=== PATIENT | female | born 1990 | race Caucasian/White ===

== ENCOUNTER 2018-09-26 10:45 | Emergency (ER) | payer SELFPAY ==
[2018-09-26 11:49] LABS: Urine Blood 1+ (NEG); Urine Glucose NEGATIVE (NEG); Urine Protein NEGATIVE (NEG); Urine Specific Gravity 1.025 (1.005-1.030)
--- NOTE | 2018-09-26 12:22 | ER ---
Nurse's Notes [facility] Name: Peyton Potts Age: 28 yrs Sex: Female : 1990 Arrival Date: 09/26/2018 Time: 10:48 Bed 17 Private MD: Diagnosis: Flu-like illness Presentation: 09/26 10:53 Presenting complaint: Patient states: fever Tmax 104, coughing with blood streaked sv sputum, body aches since Wednesday. Transition of care: patient was not received from another setting of care. Onset of symptoms was September 23, 2018. Risk Assessment: Do you want to hurt yourself or someone else? Patient reports no desire to harm self or others. Initial Sepsis Screen: Does the patient meet any 2 criteria? No. Patient's initial sepsis screen is negative. Does the patient have a suspected source of infection? No. Patient's initial sepsis screen is negative. Care prior to arrival: Medication(s) given: Mucinex and Theraflu. 10:53 Method Of Arrival: Ambulatory sv 10:53 Acuity: RICHIE 4 sv Triage Assessment: 11:00 General: Appears in no apparent distress. uncomfortable, Behavior is calm, cooperative, sv appropriate for age. General: Reports fever for 2-3 days, feeling ill for 2-3 days, fatigue for 2-3 days. Pain: Complains of pain in throat Pain currently is 7 out of 10 on a pain scale. EENT: Reports pain in throat. Neuro: Level of Consciousness is awake, alert, obeys commands, Oriented to person, place, time, situation, Moves all extremities. Full function. Respiratory: Respiratory effort is even, unlabored, Respiratory pattern is regular, symmetrical. 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 - Social history:: Smoking status: Patient/guardian denies using tobacco, Patient uses alcohol, occasionally. - Ebola Screening: : No symptoms or risks identified at this time. Screenin:53 Abuse screen: Denies threats or abuse. Nutritional screening: No deficits noted. tw2 Tuberculosis screening: No symptoms or risk factors identified. Fall Risk None identified. Assessment: 10:55 General: Appears in no apparent distress. Behavior is calm, cooperative, appropriate tw2 for age. Neuro: Level of Consciousness is awake, alert, obeys commands, Oriented to person, place, time, situation. Cardiovascular: Patient's skin is warm and dry. Respiratory: Reports cough that is Airway is patent Respiratory effort is even, unlabored, Respiratory pattern is regular, symmetrical. GI: No signs and/or symptoms were reported involving the gastrointestinal system. : No signs and/or symptoms were reported regarding the genitourinary system. EENT: Reports nasal congestion nasal discharge. Derm: No signs and/or symptoms reported regarding the dermatologic system. Musculoskeletal: Range of motion: intact in all extremities. 11:53 Reassessment: Patient appears in no apparent distress at this time. No changes from tw2 previously documented assessment. Patient and/or family updated on plan of care and expected duration. Pain level reassessed. Patient is alert, oriented x 3, equal unlabored respirations, skin warm/dry/pink. 12:35 Reassessment: Patient appears in no apparent distress at this time. No changes from tw2 previously documented assessment. Patient and/or family updated on plan of care and expected duration. Pain level reassessed. Patient is alert, oriented x 3, equal unlabored respirations, skin warm/dry/pink. Vital Signs: 11:01 BP 143 / 85; Pulse 85; Resp 20; Temp 98.8; Pulse Ox 99% ; Weight 77.11 kg; Height 5 ft. sv 0 in. (152.40 cm); Pain 7/10; 11:53 BP 116 / 68; Pulse 88; Resp 17; Pulse Ox 98% on R/A; tw2 11:01 Body Mass Index 33.20 (77.11 kg, 152.40 cm) sv ED Course: 10:48 Patient arrived in ED. sb2 10:51 Sae Caraballo MD is Attending Physician. ps1 10:59 Triage completed. sv 11:01 Arm band placed on Patient placed in an exam room, on a stretcher, on pulse oximetry. sv 11:03 Bed in low position. Call light in reach. tw2 11:48 Connie Gleason RN is Primary Nurse. tw2 12:35 No provider procedures requiring assistance completed. Patient did not have IV access tw2 during this emergency room visit. Administered Medications: No medications were administered Outcome: 12:21 Discharge ordered by . ps1 12:35 Discharged to home ambulatory. tw2 12:35 Condition: stable 12:35 Discharge instructions given to patient, Instructed on discharge instructions, follow up and referral plans. no drinking with medication, no driving heavy equipment, medication usage, Demonstrated understanding of instructions, follow-up care, medications, Prescriptions given X 3. 12:35 Patient left the ED. tw2 Signatures: Zohra Gomez RN RN sv Connie Gleason RN RN tw2 Sae Caraballo MD MD ps1 Billeau, Sheri sb2
--- NOTE | 2018-09-26 12:22 | EDPHYS ---
Physician Documentation [facility] Name: Peyton Potts Age: 28 yrs Sex: Female : 1990 Arrival Date: 09/26/2018 Time: 10:48 Bed 17 Private MD: ED Physician Sae aCraballo HPI: 09/26 10:57 This 28 yrs old Female presents to ER via Unassigned with complaints of Flu ps1 Symptoms. 10:57 onset was Wednesday associated with cough, fever (tmax 104) remits with Motrin, nausea flu ps1 like symptoms. Sent home from work. No urinary complaints. Tried OTC medications that she says didn't work. Has non-productive cough that is worse at night and in the morning. . 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 - Social history:: Smoking status: Patient/guardian denies using tobacco, Patient uses alcohol, occasionally. - Ebola Screening: : No symptoms or risks identified at this time. ROS: 10:57 Cardiovascular: Negative for chest pain, palpitations, and edema. ps1 10:57 MS/Extremity: Negative for injury and deformity, Skin: Negative for injury, rash, and discoloration, Neuro: Negative for headache, weakness, numbness, tingling, and seizure. 10:57 Constitutional: Positive for body aches, chills, fatigue, fever, poor PO intake. 10:57 Respiratory: Positive for cough. 10:57 Abdomen/GI: Positive for nausea, vomiting. Exam: 10:57 Constitutional: This is a well developed, well nourished patient who is awake, alert, ps1 and in no acute distress. Head/Face: Normocephalic, atraumatic. Eyes: Pupils equal round and reactive to light, extra-ocular motions intact. Lids and lashes normal. Conjunctiva and sclera are non-icteric and not injected. Chest/axilla: Normal chest wall appearance and motion. Nontender with no deformity. No lesions are appreciated. Cardiovascular: Regular rate and rhythm. No gallops, murmurs, or rubs. Normal PMI, no JVD. No pulse deficits. Respiratory: Lungs have equal breath sounds bilaterally, clear to auscultation and percussion. No rales, rhonchi or wheezes noted. No increased work of breathing, no retractions or nasal flaring. Abdomen/GI: Soft, non-tender, with normal bowel sounds. No distension or tympany. No guarding or rebound. No evidence of tenderness throughout. MS/ Extremity: Pulses equal, no cyanosis. Neurovascular intact. Full, normal range of motion. Neuro: Awake and alert, GCS 15, oriented to person, place, time, and situation. Cranial nerves II-XII grossly intact. Sensory grossly intact. Psych: Awake, alert, with orientation to person, place and time. Behavior, mood, and affect are within normal limits. Vital Signs: 11:01 BP 143 / 85; Pulse 85; Resp 20; Temp 98.8; Pulse Ox 99% ; Weight 77.11 kg; Height 5 ft. sv 0 in. (152.40 cm); Pain 7/10; 11:53 BP 116 / 68; Pulse 88; Resp 17; Pulse Ox 98% on R/A; tw2 11:01 Body Mass Index 33.20 (77.11 kg, 152.40 cm) sv MDM: 11:02 Patient medically screened. ps1 09/26 10:52 Order name: Flu; Complete Time: 12:20 ps1 09/26 11:26 Order name: Urine Dipstick--Ancillary (enter results); Complete Time: 12:20 ss 09/26 10:52 Order name: Urine Dipstick-Ancillary (obtain specimen); Complete Time: 11:21 ps1 09/26 11:26 Order name: Urine --Ancillary (enter results); Complete Time: 12:20 ss Administered Medications: No medications were administered Disposition: 09/26/18 12:21 Discharged to Home. Impression: Flu-like illness. - Condition is Stable. - Discharge Instructions: Upper Respiratory Infection, Adult, [id number]. - Prescriptions for promethazine- codeine 6.25-10 mg/5 mL Oral syrup - take 5 milliliter by ORAL route every 4-6 hours as needed, not to exceed 30 mL in 24 hours; 120 milliliter. Anaprox DS 550 mg Oral Tablet - take 1 tablet by ORAL route every 12 hours As needed; 20 tablet. Zofran 4 mg Oral Tablet - take 1 tablet by ORAL route every 12 hours As needed; 20 tablet. - Work release form, Medication Reconciliation Form, Thank You Letter, Antibiotic Education, Prescription Opioid Use form. - Follow up: Private Physician; When: As needed; Reason: Recheck today's complaints, Continuance of care, Re-evaluation by your physician. Follow up: Emergency Department; When: As needed; Reason: Trouble breathing, Worsening of condition. - Problem is new. - Symptoms are unchanged. Signatures: Dispatcher [employer] EDMS Zohra Gomez RN RN sv Connie Gleason RN RN tw2 Sae Caraballo MD MD ps1 Corrections: (The following items were deleted from the chart) 12:35 12:21 09/26/2018 12:21 Discharged to Home. Impression: Flu-like illness. Condition is tw2 Stable. Forms are Work release form, Medication Reconciliation Form, Thank You Letter, Antibiotic Education, Prescription Opioid Use. Follow up: Private Physician; When: As needed; Reason: Recheck today's complaints, Continuance of care, Re-evaluation by your physician. Follow up: Emergency Department; When: As needed; Reason: Trouble breathing, Worsening of condition. Problem is new. Symptoms are unchanged. ps1
[2018-09-26 12:50] VITALS: TEMP 98.8
[2018-09-26 12:52] VITALS: BP 116/68; O2SAT 98
== END 2018-09-26 12:35 | disposition home or self-care (01) ==
LOC: ER 10:45
DX: J11.1 Influenza due to unidentified influenza virus with other respiratory manifestations (principal)
CPT/HCPCS: 81003; 81025; 87804; 99283

== ENCOUNTER 2018-10-23 13:24 | Emergency (ER) | payer SELFPAY ==
[2018-10-23] MEDS ORDERED: IBUPROFEN 400 MG TAB ONE (14:21)
[2018-10-23] MEDS ORDERED: IBUPROFEN 200 MG TAB PO ONE (14:21)
[2018-10-23] MEDS ORDERED: HYDROCODONE/APAP 5/325 MG TAB ONE (14:21)
--- NOTE | 2018-10-23 14:41 | EDPHYS ---
Physician Documentation [facility] Name: Peyton Potts Age: 28 yrs Sex: Female : 1990 Arrival Date: 10/23/2018 Time: 13:25 Bed 26 Private MD: ED Physician Abdelrahman Poole HPI: 10/23 14:09 This 28 yrs old Female presents to ER via Ambulatory with complaints of Wrist snw Injury. 14:09 The patient or guardian reports injury, pain. The complaints affect the right wrist snw diffusely. Context: The problem was sustained outdoors, resulted from a fall, while skating. Onset: The symptoms/episode began/occurred suddenly, just prior to arrival. Compartment Syndrome negative for numbness. The patient has not experienced similar symptoms in the past. The patient has not recently seen a physician. denies LOC, no head injury, denies . 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 - Social history:: Smoking status: Patient/guardian denies using tobacco. - Ebola Screening: : Patient negative for fever greater than or equal to 101.5 degrees Fahrenheit, and additional compatible Ebola Virus Disease symptoms Patient denies exposure to infectious person Patient denies travel to an Ebola-affected area in the 21 days before illness onset No symptoms or risks identified at this time. ROS: 14:08 Constitutional: Negative for fever, chills, and weight loss, Eyes: Negative for injury, snw pain, redness, and discharge, ENT: Negative for injury, pain, and discharge, Neck: Negative for injury, pain, and swelling, Cardiovascular: Negative for chest pain, palpitations, and edema, Respiratory: Negative for shortness of breath, cough, wheezing, and pleuritic chest pain, Abdomen/GI: Negative for abdominal pain, nausea, vomiting, diarrhea, and constipation, Back: Negative for injury and pain, : Negative for injury, bleeding, discharge, and swelling, Skin: Negative for injury, rash, and discoloration, Neuro: Negative for headache, weakness, numbness, tingling, and seizure, Psych: Negative for depression, anxiety, suicide ideation, homicidal ideation, and hallucinations. 14:08 MS/extremity: Positive for injury or acute deformity, contusion, decreased range of motion, pain, swelling, heard pop in right wrist s/p fall. Exam: 14:06 Constitutional: This is a well developed, well nourished patient who is awake, alert, snw and in no acute distress. Head/Face: Normocephalic, atraumatic. Eyes: Pupils equal round and reactive to light, extra-ocular motions intact. Lids and lashes normal. Conjunctiva and sclera are non-icteric and not injected. Cornea within normal limits. Periorbital areas with no swelling, redness, or edema. ENT: Nares patent. No nasal discharge, no septal abnormalities noted. Tympanic membranes are normal and external auditory canals are clear. Oropharynx with no redness, swelling, or masses, exudates, or evidence of obstruction, uvula midline. Mucous membranes moist. Neck: Trachea midline, no thyromegaly or masses palpated, and no cervical lymphadenopathy. Supple, full range of motion without nuchal rigidity, or vertebral point tenderness. No Meningismus. Chest/axilla: Normal chest wall appearance and motion. Nontender with no deformity. No lesions are appreciated. Cardiovascular: Regular rate and rhythm with a normal S1 and S2. No gallops, murmurs, or rubs. Normal PMI, no JVD. No pulse deficits. Respiratory: Lungs have equal breath sounds bilaterally, clear to auscultation and percussion. No rales, rhonchi or wheezes noted. No increased work of breathing, no retractions or nasal flaring. Abdomen/GI: Soft, non-tender, with normal bowel sounds. No distension or tympany. No guarding or rebound. No evidence of tenderness throughout. Back: No spinal tenderness. No costovertebral tenderness. Full range of motion. Skin: Warm, dry with normal turgor. Normal color with no rashes, no lesions, and no evidence of cellulitis. Neuro: Awake and alert, GCS 15, oriented to person, place, time, and situation. Cranial nerves II-XII grossly intact. Motor strength 5/5 in all extremities. Sensory grossly intact. Cerebellar exam normal. Normal gait. Psych: Awake, alert, with orientation to person, place and time. Behavior, mood, and affect are within normal limits. 14:06 Psych: Awake, alert, with orientation to person, place and time. Behavior, mood, and affect are within normal limits. 14:06 Musculoskeletal/extremity: Extremities: grossly normal except: noted in the distal right radius: contusion, decreased ROM, swelling, tenderness, ROM: limited active range of motion due to pain, Circulation is intact in all extremities. Tingling of extremity. Vital Signs: 13:39 BP 116 / 78; Pulse 87; Resp 18; Temp 98.1; Pulse Ox 99% on R/A; Weight 79.38 kg; Height aj 5 ft. 0 in. (152.40 cm); 14:30 BP 113 / 74; Pulse 81; Resp 16; Temp 98(O); Pulse Ox 100% on R/A; Pain 5/10; ed1 14:53 BP 108 / 69; Pulse 68; Resp 16; Temp 98.2(O); Pulse Ox 99% on R/A; Pain 3/10; ed1 13:39 Body Mass Index 34.18 (79.38 kg, 152.40 cm) aj MDM: 13:46 Patient medically screened. leticia 13:46 Patient medically screened. leticia 14:35 Data reviewed: vital signs, nurses notes. Data interpreted: Pulse oximetry: on room air snw is 100 %. Interpretation: normal. Counseling: I had a detailed discussion with the patient and/or guardian regarding: the historical points, exam findings, and any diagnostic results supporting the discharge/admit diagnosis, radiology results, the need for outpatient follow up, for definitive care, to return to the emergency department if symptoms worsen or persist or if there are any questions or concerns that arise at home. Special discussion: Based on the history and exam findings, there is no indication for further emergent testing or inpatient evaluation. I discussed with the patient/guardian the need to see the orthopedic surgeon for further evaluation of the symptoms. I discussed with the patient/guardian the need to see the primary care provider for further evaluation of the symptoms. 10/23 13:45 Order name: Forearm Right XRAY snw 10/23 13:45 Order name: Misc. Order; Complete Time: 14:32 snw 10/23 14:38 Order name: Wrist Splint; Complete Time: 14:52 snw 10/23 14:38 Order name: Sling; Complete Time: 14:52 snw Administered Medications: 14:13 Drug: [place] 5 mg-325 mg 1 tabs Route: PO; ed1 14:51 Follow up: Response: No adverse reaction; Pain is decreased ed1 14:14 Drug: Motrin 600 mg Route: PO; ed1 14:51 Follow up: Response: No adverse reaction; Pain is decreased ed1 Disposition: 10/24 06:35 Co-signature as Attending Physician, Abdelrahman Poole MD I agree with the assessment and leticia plan of care. Disposition: 10/23/18 14:39 Discharged to Home. Impression: Fall on same level, unspecified, Other and unspecified sprain of wrist. - Condition is Stable. - Discharge Instructions: Cast or Splint Care, Adult, Fall Prevention in the Home, RICE for Routine Care of Injuries, How to Use a Sling. - Prescriptions for Diclofenac Sodium 75 mg Oral Tablet Sustained Release - take 1 tablet by ORAL route 2 times per day; 30 tablet. orphenadrine citrate 100 mg Oral Tablet Sustained Release - take 1 tablet by ORAL route 2 times per day As needed; 20 tablet. - Work release form, Medication Reconciliation Form, Thank You Letter, Antibiotic Education, Prescription Opioid Use form. - Follow up: Private Physician; When: 2 - 3 days; Reason: Recheck today's complaints, Continuance of care, Re-evaluation by your physician. Follow up: Emergency Department; When: As needed; Reason: Worsening of condition. Signatures: Dispatcher [employer] EDMS Rosalind Florez RN RN aj Anderson, Corey, MD MD cha Therrien, Shelly, LAND MOBILE RADIO TECHNICIAN-C LAND MOBILE RADIO TECHNICIAN-Miguel Aw Eleni Mejia, BUILDING CONSTRUCTION ENGINEER BUILDING CONSTRUCTION ENGINEER ed1 Corrections: (The following items were deleted from the chart) 10/23 14:55 14:39 10/23/2018 14:39 Discharged to Home. Impression: Fall on same level, unspecified; ed1 Other and unspecified sprain of wrist. Condition is Stable. Forms are Medication Reconciliation Form, Thank You Letter, Antibiotic Education, Prescription Opioid Use. Follow up: Private Physician; When: 2 - 3 days; Reason: Recheck today's complaints, Continuance of care, Re-evaluation by your physician. Follow up: Emergency Department; When: As needed; Reason: Worsening of condition. snw
--- NOTE | 2018-10-23 14:41 | ER ---
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 Transition of care: patient was not received from another setting of care. Onset of symptoms was October 23, 2018. Risk Assessment: Do you want to hurt yourself or someone else? Patient reports no desire to harm self or others. Initial Sepsis Screen: Does the patient meet any 2 criteria? No. Patient's initial sepsis screen is negative. Does the patient have a suspected source of infection? No. Patient's initial sepsis screen is negative. Care prior to arrival: None. 13:36 Method Of Arrival: Ambulatory 13:36 Acuity: RICHIE 4 aj Triage Assessment: 13:39 General: Appears in no apparent distress. comfortable, Behavior is calm, cooperative, aj appropriate for age. Pain: Complains of pain in right wrist. Neuro: Level of Consciousness is awake, alert, obeys commands, Oriented to person, place, time, situation, Appropriate for age. Respiratory: Airway is patent Respiratory effort is even, unlabored, Respiratory pattern is regular, symmetrical. Derm: Skin is intact, is healthy with good turgor, Skin is pink, warm \T\ dry. normal. Musculoskeletal: Circulation, motion, and sensation intact. Range of motion: intact in all extremities, Swelling present in right wrist. 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 - Social history:: Smoking status: Patient/guardian denies using tobacco. - Ebola Screening: : Patient negative for fever greater than or equal to 101.5 degrees Fahrenheit, and additional compatible Ebola Virus Disease symptoms Patient denies exposure to infectious person Patient denies travel to an Ebola-affected area in the 21 days before illness onset No symptoms or risks identified at this time. Screenin:49 Abuse screen: Denies threats or abuse. Denies injuries from another. Nutritional ed1 screening: No deficits noted. Tuberculosis screening: No symptoms or risk factors identified. Fall Risk None identified. Assessment: 14:30 Reassessment: Patient appears in no apparent distress at this time. No changes from ed1 previously documented assessment. Patient and/or family updated on plan of care and expected duration. Pain level reassessed. Patient is alert, oriented x 3, equal unlabored respirations, skin warm/dry/pink. x-rays completed in room. 14:53 Reassessment: Patient appears in no apparent distress at this time. Patient and/or ed1 family updated on plan of care and expected duration. Pain level reassessed. Patient is alert, oriented x 3, equal unlabored respirations, skin warm/dry/pink. Patient states feeling better. Patient states symptoms have improved. Vital Signs: 13:39 BP 116 / 78; Pulse 87; Resp 18; Temp 98.1; Pulse Ox 99% on R/A; Weight 79.38 kg; Height aj 5 ft. 0 in. (152.40 cm); 14:30 BP 113 / 74; Pulse 81; Resp 16; Temp 98(O); Pulse Ox 100% on R/A; Pain 5/10; ed1 14:53 BP 108 / 69; Pulse 68; Resp 16; Temp 98.2(O); Pulse Ox 99% on R/A; Pain 3/10; ed1 13:39 Body Mass Index 34.18 (79.38 kg, 152.40 cm) aj ED Course: 13:25 Patient arrived in ED. as 13:39 Triage completed. aj 13:39 Arm band placed on left wrist. Patient placed in an exam room. aj 13:44 Jayashree Post FNP-C is PSYCHIATRICP. snw 13:44 Abdelrahman Poole MD is Attending Physician. snw 13:49 Eleni Mejia LVN is Primary Nurse. ed1 13:49 Awaiting for x-ray. ed1 13:49 Patient has correct armband on for positive identification. Bed in low position. Call ed1 light in reach. 14:33 X-ray completed. Portable x-ray completed in exam room. Patient tolerated procedure la2 well. 14:34 Forearm Right XRAY In Process Unspecified. EDMS 14:53 No provider procedures requiring assistance completed. Patient did not have IV access ed1 during this emergency room visit. Velcro wrist splint applied to right wrist. Sling applied to right arm. Administered Medications: 14:13 Drug: [place] 5 mg-325 mg 1 tabs Route: PO; ed1 14:51 Follow up: Response: No adverse reaction; Pain is decreased ed1 14:14 Drug: Motrin 600 mg Route: PO; ed1 14:51 Follow up: Response: No adverse reaction; Pain is decreased ed1 Outcome: 14:39 Discharge ordered by MD. snw 14:53 Discharged to home ambulatory, with significant other. ed1 14:53 Condition: good 14:53 Discharge instructions given to patient, Instructed on discharge instructions, follow up and referral plans. medication usage, Demonstrated understanding of instructions, follow-up care, medications, Prescriptions given X 2. 14:55 Patient left the ED. ed1 Signatures: Dispatcher [employer] Rosalind Santillan, RN RN Jayashree Emanuel, GASTROENTEROLOGY MANAGER-C GASTROENTEROLOGY MANAGER-Deborah Baumann Erika, TWX OPERATOR TWX OPERATOR ed1 Nannette Gillespie la2 Corrections: (The following items were deleted from the chart) 14:31 14:30 Reassessment: Patient appears in no apparent distress at this time. No changes ed1 from previously documented assessment. Patient and/or family updated on plan of care and expected duration. Pain level reassessed. Patient is alert, oriented x 3, equal unlabored respirations, skin warm/dry/pink. ed1
[2018-10-23 15:13] VITALS: BP 108/69; TEMP 98.2; O2SAT 99
--- NOTE | 2018-10-23 15:21 | RAD REPORT ---
EXAM DESCRIPTION: RAD - Forearm Right - 10/23/2018 2:34 pm CLINICAL HISTORY: Fall, right arm pain COMPARISON: None. FINDINGS: No fracture is identified. There is no dislocation or periosteal reaction noted. No foreign body or other soft tissue abnormality. IMPRESSION: Negative right forearm examination.
== END 2018-10-23 14:55 | disposition home or self-care (01) ==
LOC: ER 13:24
DX: S63.591A Other specified sprain of right wrist, initial encounter (principal); W01.0XXA Fall on same level from slipping, tripping and stumbling without subsequent striking against object, initial encounter; Y93.51 Activity, roller skating (inline) and skateboarding
CPT/HCPCS: 99284

== ENCOUNTER 2019-03-15 15:25 | Emergency (ER) | payer SELFPAY ==
[2019-03-15] MEDS ORDERED: METOCLOPRAMIDE 10 MG/2mL INJ ONE (16:41)
[2019-03-15] MEDS ORDERED: DIPHENHYDRAMINE 50 MG/ML VIAL ONE (16:41)
[2019-03-15] MEDS ORDERED: DEXAMETHASONE 10 MG/ML VIAL ONE (16:41)
--- NOTE | 2019-03-15 16:47 | RAD REPORT ---
EXAM DESCRIPTION: CT - Head Brain Wo Cont - 03/15/2019 4:22 pm CLINICAL HISTORY: Numbness COMPARISON: 2008 TECHNIQUE: Computed axial tomography of the head was obtained. IV contrast was not requested. All CT scans are performed using dose optimization technique as appropriate and may include automated exposure control or mA/KV adjustment according to patient size. FINDINGS: An intracranial bleed is not seen . The ventricles are normal in caliber. No extra-axial fluid collection is noted. Fluid within the sinuses/ mastoids is not seen. IMPRESSION: No acute intracranial abnormality is seen. If patient's symptoms persist MRI of the bra in would be recommended.
--- NOTE | 2019-03-15 16:55 | EDPHYS ---
Physician Documentation [facility] Name: Peyton Potts Age: 28 yrs Sex: Female : 1990 Arrival Date: 03/15/2019 Time: 15:27 Bed 19 Private MD: None, None ED Physician Ameena Boswell HPI: 03/15 16:44 This 28 yrs old Female presents to ER via Ambulatory with complaints of jr8 Headache. 16:44 The patient complains of pain to the forehead, right eye, left eye, left occipital area jr8 and right occipital area. The patient describes the headache as a pressure. Onset: The symptoms/episode began/occurred gradually, 3 month(s) ago. Associated signs and symptoms: Pertinent positives: Photophobia. Severity of symptoms: At its worst the pain was moderate, in the emergency department the pain is unchanged. Headache History: Denies prior headaches. The symptoms are alleviated by over the counter pain medication, OTC NSAIDS, Tylenol, the symptoms are aggravated by lights, movement, noise, stress. The patient has not experienced similar symptoms in the past. The patient has not recently seen a physician. Stated that she has had persistent chronic migraines for the past three months that would only be somewhat relieved by OTC medication. Now to the point where OTC meds are no longer helping. Has on/off facial and finger numbness and tingling associated with the migraines . 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 - Social history:: Smoking status: Patient/guardian denies using tobacco. - Ebola Screening: : No symptoms or risks identified at this time. ROS: 16:44 Eyes: Negative for injury, pain, redness, and discharge, ENT: Negative for injury, jr8 pain, and discharge, Neck: Negative for injury, pain, and swelling, Cardiovascular: Negative for chest pain, palpitations, and edema, Respiratory: Negative for shortness of breath, cough, wheezing, and pleuritic chest pain, Abdomen/GI: Negative for abdominal pain, nausea, vomiting, diarrhea, and constipation, Back: Negative for injury and pain, MS/Extremity: Negative for injury and deformity, Skin: Negative for injury, rash, and discoloration. 16:44 Neuro: Positive for headache, numbness. Exam: 16:44 Eyes: Pupils equal round and reactive to light, extra-ocular motions intact. Lids and jr8 lashes normal. Conjunctiva and sclera are non-icteric and not injected. Cornea within normal limits. Periorbital areas with no swelling, redness, or edema. ENT: Nares patent. No nasal discharge, no septal abnormalities noted. Tympanic membranes are normal and external auditory canals are clear. Oropharynx with no redness, swelling, or masses, exudates, or evidence of obstruction, uvula midline. Mucous membranes moist. Neck: Trachea midline, no thyromegaly or masses palpated, and no cervical lymphadenopathy. Supple, full range of motion without nuchal rigidity, or vertebral point tenderness. No Meningismus. Cardiovascular: Regular rate and rhythm with a normal S1 and S2. No gallops, murmurs, or rubs. Normal PMI, no JVD. No pulse deficits. Respiratory: Lungs have equal breath sounds bilaterally, clear to auscultation and percussion. No rales, rhonchi or wheezes noted. No increased work of breathing, no retractions or nasal flaring. Abdomen/GI: Soft, non-tender, with normal bowel sounds. No distension or tympany. No guarding or rebound. No evidence of tenderness throughout. Back: No spinal tenderness. No costovertebral tenderness. Full range of motion. Skin: Warm, dry with normal turgor. Normal color with no rashes, no lesions, and no evidence of cellulitis. MS/ Extremity: Pulses equal, no cyanosis. Neurovascular intact. Full, normal range of motion. Neuro: Awake and alert, GCS 15, oriented to person, place, time, and situation. Cranial nerves II-XII grossly intact. Motor strength 5/5 in all extremities. Sensory grossly intact. Cerebellar exam normal. Normal gait. Vital Signs: 15:35 BP 137 / 76; Pulse 82; Resp 16 S; Temp 98.4(TE); Pulse Ox 99% on R/A; Weight 86.18 kg aa5 (R); Height 5 ft. 1 in. (154.94 cm) (R); Pain 7/10; 16:40 BP 104 / 69; Pulse 67; Resp 17; Pulse Ox 98% on R/A; tw2 17:14 BP 105 / 68; Pulse 72; Resp 17; Pulse Ox 97% on R/A; Pain 5/10; tw2 15:35 Body Mass Index 35.90 (86.18 kg, 154.94 cm) aa5 MDM: 16:03 Patient medically screened. jr8 16:53 Data reviewed: vital signs, nurses notes, radiologic studies, CT scan. Data jr8 interpreted: Pulse oximetry: on room air is 99 %. Interpretation: normal. Counseling: I had a detailed discussion with the patient and/or guardian regarding: the historical points, exam findings, and any diagnostic results supporting the discharge/admit diagnosis, radiology results, the need for outpatient follow up, a neurologist, to return to the emergency department if symptoms worsen or persist or if there are any questions or concerns that arise at home. Response to treatment: the patient's symptoms have markedly improved after treatment. 03/15 16:09 Order name: CT Head Brain wo Cont; Complete Time: 16:50 jr8 03/15 16:08 Order name: IV; Complete Time: 16:50 jr8 Administered Medications: 16:45 Drug: Reglan 10 mg Route: IVP; Site: left antecubital; tw2 17:20 Follow up: Response: No adverse reaction; Pain is decreased tw2 16:48 Drug: Benadryl 25 mg Route: IVP; Site: left antecubital; tw2 17:20 Follow up: Response: No adverse reaction tw2 16:51 Drug: Decadron - Dexamethasone 10 mg Route: IVP; Site: left antecubital; tw2 17:20 Follow up: Response: No adverse reaction tw2 Disposition: 18:40 Co-signature as Attending Physician, Ameena Boswell MD. hi2 Disposition: 03/15/19 16:54 Discharged to Home. Impression: Migraine without aura, intractable, with status migrainosus. - Condition is Stable. - Discharge Instructions: Migraine Headache, Recurrent Migraine Headache. - Prescriptions for Fioricet 50- 325-40 mg Oral tablet - take 2 tablet by ORAL route every 4 hours as needed not to exceed 6 tablets per 24hrs; 30 tablet. - Work release form, Medication Reconciliation Form, Thank You Letter, Antibiotic Education, Prescription Opioid Use form. - Follow up: North Soares MD; When: 5 - 6 days; Reason: Recheck today's complaints, Continuance of care, Re-evaluation by your physician. - Problem is new. - Symptoms have improved. Signatures: Dispatcher [employer] EDNE Hazel Mas, RN RN aa5 José Miguel Kwong PA PA jr8 Connie Gleason RN RN tw2 Ameena Boswell MD MD ma2 Corrections: (The following items were deleted from the chart) 17:21 16:54 03/15/2019 16:54 Discharged to Home. Impression: Migraine without aura, tw2 intractable, with status migrainosus. Condition is Stable. Forms are Medication Reconciliation Form, Thank You Letter, Antibiotic Education, Prescription Opioid Use. Follow up: North Soares; When: 5 - 6 days; Reason: Recheck today's complaints, Continuance of care, Re-evaluation by your physician. Problem is new. Symptoms have improved. jr8
--- NOTE | 2019-03-15 16:55 | ER ---
Nurse's Notes [facility] Name: Peyton Potts Age: 28 yrs Sex: Female : 1990 Arrival Date: 03/15/2019 Time: 15:27 Bed 19 Private MD: None, None Diagnosis: Migraine without aura, intractable, with status migrainosus Presentation: 03/15 15:34 Presenting complaint: Patient states: "I've been having migraines for about 3 months aa5 now and I don't know what else to do". Pt states "I even got glasses but it didn't improve the headaches". Transition of care: patient was not received from another setting of care. Onset of symptoms was 2018. Risk Assessment: Do you want to hurt yourself or someone else? Patient reports no desire to harm self or others. Initial Sepsis Screen: Does the patient meet any 2 criteria? No. Patient's initial sepsis screen is negative. Does the patient have a suspected source of infection? No. Patient's initial sepsis screen is negative. Care prior to arrival: None. 15:34 Method Of Arrival: Ambulatory aa5 15:34 Acuity: RICHIE 3 aa5 Triage Assessment: 17:05 Headache History: The patient has had previous headaches and this one is similar to tw2 previous episodes. General: Appears in no apparent distress. Pain: Pain Pain began 2-3 days ago. Also complains of photophobia. 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 - Social history:: Smoking status: Patient/guardian denies using tobacco. - Ebola Screening: : No symptoms or risks identified at this time. Screenin:05 Abuse screen: Denies threats or abuse. Nutritional screening: No deficits noted. tw2 Tuberculosis screening: No symptoms or risk factors identified. Fall Risk None identified. Assessment: 16:10 General: Appears in no apparent distress. Behavior is calm, cooperative, appropriate tw2 for age. Pain: Complains of pain in right occipital area and left occipital area and left eye and right eye and forehead. Neuro: Level of Consciousness is awake, alert, obeys commands, Oriented to person, place, time, situation, Reports headache. Cardiovascular: Heart tones S1 S2 Patient's skin is warm and dry. Respiratory: Airway is patent Respiratory effort is even, unlabored, Respiratory pattern is regular, symmetrical, Breath sounds are clear bilaterally. GI: No signs and/or symptoms were reported involving the gastrointestinal system. : No signs and/or symptoms were reported regarding the genitourinary system. EENT: No signs and/or symptoms were reported regarding the EENT system. Derm: No signs and/or symptoms reported regarding the dermatologic system. Musculoskeletal: Range of motion: intact in all extremities. 16:52 Reassessment: Patient appears in no apparent distress at this time. No changes from tw2 previously documented assessment. Patient and/or family updated on plan of care and expected duration. Pain level reassessed. Patient is alert, oriented x 3, equal unlabored respirations, skin warm/dry/pink. 17:14 Reassessment: Patient appears in no apparent distress at this time. Patient and/or tw2 family updated on plan of care and expected duration. Pain level reassessed. Patient is alert, oriented x 3, equal unlabored respirations, skin warm/dry/pink. Patient states feeling better. Patient states symptoms have improved. Vital Signs: 15:35 BP 137 / 76; Pulse 82; Resp 16 S; Temp 98.4(TE); Pulse Ox 99% on R/A; Weight 86.18 kg aa5 (R); Height 5 ft. 1 in. (154.94 cm) (R); Pain 7/10; 16:40 BP 104 / 69; Pulse 67; Resp 17; Pulse Ox 98% on R/A; tw2 17:14 BP 105 / 68; Pulse 72; Resp 17; Pulse Ox 97% on R/A; Pain 5/10; tw2 15:35 Body Mass Index 35.90 (86.18 kg, 154.94 cm) aa5 ED Course: 15:27 Patient arrived in ED. mr 15:27 None, None is Private Physician. mr 15:34 Arm band placed on. aa5 15:35 Triage completed. aa5 16:02 Bed in low position. Call light in reach. Pulse ox on. NIBP on. tw2 16:03 José Miguel Kwong PA is PHCP. jr8 16:03 Ameena Boswell MD is Attending Physician. jr8 16:[address] via wheelchair. nj 16:22 CT completed. Patient tolerated procedure well. Patient moved back from CT. nj 16:22 CT Head Brain wo Cont In Process Unspecified. EDMS 16:25 Connie Gleason RN is Primary Nurse. tw2 16:40 Inserted saline lock: 22 gauge in left antecubital area, using aseptic technique. tw2 16:54 North Soares MD is Referral Physician. jr8 17:02 Awaiting: re-evaluation after IV medications prior to discharge. tw2 17:19 No provider procedures requiring assistance completed. IV discontinued, intact, tw2 bleeding controlled, No redness/swelling at site. Pressure dressing applied. Administered Medications: 16:45 Drug: Reglan 10 mg Route: IVP; Site: left antecubital; tw2 17:20 Follow up: Response: No adverse reaction; Pain is decreased tw2 16:48 Drug: Benadryl 25 mg Route: IVP; Site: left antecubital; tw2 17:20 Follow up: Response: No adverse reaction tw2 16:51 Drug: Decadron - Dexamethasone 10 mg Route: IVP; Site: left antecubital; tw2 17:20 Follow up: Response: No adverse reaction tw2 Outcome: 16:54 Discharge ordered by . jr8 17:19 Discharged to home ambulatory, with family. tw2 17:19 Condition: stable 17:19 Discharge instructions given to patient, friend, Instructed on discharge instructions, follow up and referral plans. no drinking with medication, no driving heavy equipment, medication usage, Demonstrated understanding of instructions, follow-up care, medications, Prescriptions given X 1. 17:21 Patient left the ED. tw2 Signatures: Dispatcher [employer] EDRI KrisGina mr MasHazel, RN RN aa5 José Miguel Kwong PA PA jr8 Connie Gleason, YUE RN tw2 Adriel Reynoso
[2019-03-15 17:27] VITALS: TEMP 98.4
[2019-03-15 17:30] VITALS: BP 105/68; O2SAT 97
== END 2019-03-15 17:21 | disposition home or self-care (01) ==
LOC: ER 15:25
DX: G43.011 Migraine without aura, intractable, with status migrainosus (principal)
CPT/HCPCS: 70450; J1100; J2765

== ENCOUNTER 2020-01-14 15:02 | Emergency (ER) | payer SELFPAY ==
--- NOTE | 2020-01-14 16:43 | RAD REPORT ---
EXAM DESCRIPTION: RAD - Foot Right 3 View - 01/14/2020 4:35 pm CLINICAL HISTORY: PAIN COMPARISON: No comparisons FINDINGS: No fracture or dislocation evident. Small plantar calcaneal spur.
--- NOTE | 2020-01-14 17:00 | ER ---
Nurse's Notes [facility] Name: Peyton Potts Age: 29 yrs Sex: Female : 1990 Arrival Date: 01/14/2020 Time: 15:03 Bed 14 Private MD: Diagnosis: Sprain of foot Presentation: 01/13 15:16 Chief complaint: Patient states: was walking and felt a pop in right foot, now has pain iw to right lateral side of foot and feels tingly. Coronavirus screen: The patient has NOT traveled to [place] in the past 14 days. Proceed with normal triage procedures. Ebola Screen: Patient negative for fever greater than or equal to 101.5 degrees Fahrenheit, and additional compatible Ebola Virus Disease symptoms Patient denies exposure to infectious person. Patient denies travel to an Ebola-affected area in the 21 days before illness onset. No symptoms or risks identified at this time. Initial Sepsis Screen: Does the patient meet any 2 criteria? No. Patient's initial sepsis screen is negative. Does the patient have a suspected source of infection? No. Patient's initial sepsis screen is negative. Risk Assessment: Do you want to hurt yourself or someone else? Patient reports no desire to harm self or others. 15:16 Method Of Arrival: Wheelchair iw 15:16 Acuity: RICHIE 4 iw 16:08 Onset of symptoms was January 14, 2020. ca1 Triage Assessment: 16:09 General: . Injury Description:. 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 - Social history:: Smoking status: Patient denies any tobacco usage or history of. Screenin:07 Abuse screen: Denies threats or abuse. Denies injuries from another. Nutritional ca1 screening: No deficits noted. Tuberculosis screening: No symptoms or risk factors identified. Fall Risk None identified. Assessment: 16:07 General: Appears in no apparent distress. comfortable, Behavior is calm, cooperative, ca1 appropriate for age. Pain: Complains of pain in right foot Pain currently is 6 out of 10 on a pain scale. Neuro: Level of Consciousness is awake, alert, obeys commands, Oriented to person, place, time, situation, Appropriate for age. Derm: Skin is intact, is healthy with good turgor, Skin is pink, warm \T\ dry. Musculoskeletal: Circulation, motion, and sensation intact. Capillary refill < 3 seconds. 17:00 Reassessment: Patient appears in no apparent distress at this time. Patient and/or ca1 family updated on plan of care and expected duration. Pain level reassessed. Patient is alert, oriented x 3, equal unlabored respirations, skin warm/dry/pink. Vital Signs: 15:16 Pulse 98; Resp 16; Pulse Ox 100% on R/A; Weight 81.65 kg; Height 5 ft. 0 in. (152.40 iw cm); Pain 6/10; 16:00 BP 124 / 80; Pulse 91; Resp 15 S; Pulse Ox 100% on R/A; ca1 17:00 BP 105 / 62; Pulse 89; Resp 17 S; Pulse Ox 100% on R/A; ca1 15:16 Body Mass Index 35.15 (81.65 kg, 152.40 cm) ED Course: 15:03 Patient arrived in ED. as 15:16 Arm band placed on. iw 15:17 Triage completed. 16:00 Carlito Yu PA is PHCP. [facility] 16:00 Abdelrahman Poole MD is Attending Physician. [facility] 16:02 Orquidea Aldrich RN is Primary Nurse. ca1 16:07 No provider procedures requiring assistance completed. Patient did not have IV access ca1 during this emergency room visit. 16:09 Patient has correct armband on for positive identification. ca1 16:35 Foot Right 3 View XRAY In Process Unspecified. EDMS 17:00 Austyn wrap to right foot. ca1 Administered Medications: No medications were administered Outcome: 17:00 Discharge ordered by MD. [facility] 17:32 Discharged to home ambulatory, with family. ca1 17:32 Condition: stable 17:32 Discharge instructions given to patient, Instructed on discharge instructions, follow up and referral plans. Demonstrated understanding of instructions, follow-up care. 17:33 Patient left the ED. ca1 Signatures: Dispatcher [employer] EDMS Carlito Yu PA PA jmm Martinez, Amelia as Jody James RN RN Acob, Orquidea, RN RN ca1
--- NOTE | 2020-01-14 17:01 | EDPHYS ---
Physician Documentation [facility] Name: Peyton Potts Age: 29 yrs Sex: Female : 1990 Arrival Date: 01/14/2020 Time: 15:03 Bed 14 Private MD: ED Physician Abdelrahman Poole HPI: 01/13 16:12 This 29 yrs old Female presents to ER via Wheelchair with complaints of Foot jmm Injury. 16:12 The patient presents with an injury, pain. Onset: The symptoms/episode began/occurred jmm acutely, just prior to arrival. Modifying factors: The symptoms are alleviated by elevating leg, the symptoms are aggravated by weight bearing. Associated signs and symptoms: Pertinent negatives fever. This is a 29 year old female with no chronic medical conditions that presents to the ED with complaints of right foot pain. Patient states she felt a pop as she was walking. Pain is localized to the lateral foot. 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 - Social history:: Smoking status: Patient denies any tobacco usage or history of. ROS: 16:12 Constitutional: Negative for fever, chills, and weight loss, Cardiovascular: Negative jmm for chest pain, palpitations, and edema, Respiratory: Negative for shortness of breath, cough, wheezing, and pleuritic chest pain. 16:12 MS/extremity: Positive for injury or acute deformity, pain. 16:12 All other systems are negative. Exam: 16:12 Constitutional: This is a well developed, well nourished patient who is awake, alert, jmm and in no acute distress. Head/Face: atraumatic. Eyes: EOMI, no conjunctival erythema appreciated ENT: Moist Mucus Membranes Neck: Trachea midline, Supple Chest/axilla: Normal chest wall appearance and motion. 16:12 Respiratory: Normal respirations, no respiratory distress appreciated Abdomen/GI: Non distended, soft Back: Normal ROM Skin: General appearance color normal 16:12 Cardiovascular: Rate: normal, Rhythm: regular, Pulses: no pulse deficits are appreciated. 16:12 Musculoskeletal/extremity: right foot ttp laterally, no obvious deformity appreciated, compartments soft, full dorsalis pulse, NVI. 16:12 Skin: Appearance: Color: normal in color. 16:12 Neuro: Orientation: is normal, Mentation: is normal, Memory: is normal. 16:12 Psych: Behavior/mood is pleasant, cooperative. Vital Signs: 15:16 Pulse 98; Resp 16; Pulse Ox 100% on R/A; Weight 81.65 kg; Height 5 ft. 0 in. (152.40 iw cm); Pain 6/10; 16:00 BP 124 / 80; Pulse 91; Resp 15 S; Pulse Ox 100% on R/A; ca1 17:00 BP 105 / 62; Pulse 89; Resp 17 S; Pulse Ox 100% on R/A; ca1 15:16 Body Mass Index 35.15 (81.65 kg, 152.40 cm) iw MDM: 16:01 Patient medically screened. [facility] 16:58 Data reviewed: vital signs, nurses notes. Counseling: I had a detailed discussion with ajay the patient and/or guardian regarding: the historical points, exam findings, and any diagnostic results supporting the discharge/admit diagnosis, radiology results, the need for outpatient follow up, to return to the emergency department if symptoms worsen or persist or if there are any questions or concerns that arise at home. ED course: Xray negative. Patient is advised to follow up with pcp for reevaluation and to repeat xray is symptoms continues after 1 week. Patient understood and agrees with the plan of care. . 01/13 15:19 Order name: Foot Right 3 View XRAY; Complete Time: 16:47 01/13 16:54 Order name: Austyn wrap-joint; Complete Time: 16:58 [facility] Administered Medications: No medications were administered Disposition: 18:23 Co-signature as Attending Physician, Abdelrahman Poole MD I agree with the assessment and [facility] plan of care. Disposition: 01/14/20 17:00 Discharged to Home. Impression: Sprain of foot. - Condition is Stable. - Discharge Instructions: Foot Sprain. - Medication Reconciliation Form, Thank You Letter, Antibiotic Education, Prescription Opioid Use, Work release form form. - Follow up: Private Physician; When: 2 - 3 days; Reason: Recheck today's complaints, Continuance of care, Re-evaluation by your physician. Signatures: Dispatcher [employer] EDAbdelrahman Luna MD MD cha Mickail, Joel, PA PA jmm Williams, Irene, YUE RN iw Orquidea Aldrich RN RN ca1 Corrections: (The following items were deleted from the chart) 17:33 17:00 01/14/2020 17:00 Discharged to Home. Impression: Sprain of foot. Condition is ca1 Stable. Forms are Medication Reconciliation Form, Thank You Letter, Antibiotic Education, Prescription Opioid Use. Follow up: Private Physician; When: 2 - 3 days; Reason: Recheck today's complaints, Continuance of care, Re-evaluation by your physician. ajay
[2020-01-14 18:43] VITALS: O2SAT 100
[2020-01-14 18:46] VITALS: BP 105/62
== END 2020-01-14 17:33 | disposition home or self-care (01) ==
LOC: ER 15:02
DX: S93.601A Unspecified sprain of right foot, initial encounter (principal); Y93.01 Activity, walking, marching and hiking; Y93.9 Activity, unspecified; Y92.9 Unspecified place or not applicable
CPT/HCPCS: 99283

== ENCOUNTER 2020-08-19 14:26 | Emergency (ER) | payer SELFPAY ==
--- NOTE | 2020-08-19 16:29 | RAD REPORT ---
EXAM DESCRIPTION: RAD - Foot Right 3 View - 08/19/2020 4:15 pm CLINICAL HISTORY: PAIN COMPARISON: Foot Right 3 View dated 01/14/2020 FINDINGS: No acute fracture or dislocation. Prominent plantar calcaneal spur.
--- NOTE | 2020-08-19 16:38 | ER ---
Nurse's Notes [facility] Name: Peyton Potts Age: 30 yrs Sex: Female : 1990 Arrival Date: 08/19/2020 Time: 14:28 Bed 23 Private MD: Diagnosis: Pain in right foot Presentation: 08/19 14:48 Chief complaint: Patient states: Right foot pain for 2 weeks, no known trauma. No ll1 fever. Coronavirus screen: Client denies travel out of the [place] in the last 14 days. At this time, the client does not indicate any symptoms associated with coronavirus-19. Ebola Screen: Patient denies travel to an Ebola-affected area in the 21 days before illness onset. Initial Sepsis Screen: Does the patient meet any 2 criteria? No. Patient's initial sepsis screen is negative. Risk Assessment: Do you want to hurt yourself or someone else? Patient reports no desire to harm self or others. Onset of symptoms was August 06, 2020. 14:48 Method Of Arrival: Ambulatory ll1 14:48 Acuity: RICHIE 4 ll1 15:49 Initial Sepsis Screen: Does the patient have a suspected source of infection? No. ca1 Patient's initial sepsis screen is negative. 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 - Social history:: Smoking status: Patient denies any tobacco usage or history of. Screenin:40 Abuse screen: Denies threats or abuse. Denies injuries from another. Nutritional ca1 screening: No deficits noted. Tuberculosis screening: No symptoms or risk factors identified. Fall Risk None identified. Assessment: 15:40 General: Appears in no apparent distress. comfortable, Behavior is calm, cooperative, ca1 appropriate for age. Pain: Complains of pain in right foot. Pain: Pain began 2 weeks Aggravated by weight bearing. Neuro: Level of Consciousness is awake, alert, obeys commands, Oriented to person, place, time, situation. Derm: Skin is intact, is healthy with good turgor, Skin is pink, warm \T\ dry. Musculoskeletal: Circulation, motion, and sensation intact. Capillary refill < 3 seconds. 16:40 Reassessment: Patient appears in no apparent distress at this time. Patient and/or ca1 family updated on plan of care and expected duration. Pain level reassessed. Patient is alert, oriented x 3, equal unlabored respirations, skin warm/dry/pink. Vital Signs: 14:48 BP 111 / 56; Pulse 81; Resp 17; Temp 98.1; Pulse Ox 100% ; Weight 81.65 kg; Height 5 ll1 ft. 0 in. (152.40 cm); Pain 6/10; 16:40 BP 108 / 87; Pulse 86; Resp 15 S; Pulse Ox 100% on R/A; ca1 14:48 Body Mass Index 35.15 (81.65 kg, 152.40 cm) ll1 ED Course: 14:28 Patient arrived in ED. ds1 14:50 Triage completed. ll1 14:50 Arm band placed on. ll1 15:16 [facility]-C [facility]. kb 15:16 Miguel Chun MD is Attending Physician. kb 15:37 Orquidea Aldrich, YUE is Primary Nurse. ca1 15:40 Patient has correct armband on for positive identification. Bed in low position. Call ca1 light in reach. Side rails up X 1. Pulse ox on. NIBP on. 15:49 No provider procedures requiring assistance completed. Patient did not have IV access ca1 during this emergency room visit. 16:15 Foot Right 3 View XRAY In Process Unspecified. EDMS Administered Medications: No medications were administered Outcome: 16:37 Discharge ordered by MD. kb 17:14 Discharged to home ambulatory. ca1 17:14 Condition: stable 17:14 Discharge instructions given to patient, Instructed on discharge instructions, follow up and referral plans. medication usage, Demonstrated understanding of instructions, follow-up care, medications, Prescriptions given X 1. 17:15 Patient left the ED. ca1 Signatures: Dispatcher [employer] EDMS Jessy Montes FNP-C FNP-Ckb Sanford, Demi ds1 Orquidea Aldrich RN RN ca1 Mariann De Leon RN RN ll1
--- NOTE | 2020-08-19 16:38 | EDPHYS ---
Physician Documentation [facility] Name: Peyton Potts Age: 30 yrs Sex: Female : 1990 Arrival Date: 08/19/2020 Time: 14:28 Bed 23 Private MD: ED Physician Miguel Cuhn HPI: 08/19 17:08 This 30 yrs old Female presents to ER via Ambulatory with complaints of Foot kb Pain. 17:08 The patient presents with pain, that is acute. The complaints affect the right foot. kb Context: The problem was sustained at home, resulted from an unknown cause, the patient can fully bear weight, the patient is able to ambulate, without difficulty. Onset: The symptoms/episode began/occurred 2 week(s) ago. Modifying factors: The symptoms are alleviated by nothing, the symptoms are aggravated by weight bearing. Associated signs and symptoms: The patient has no apparent associated signs or symptoms. Severity of symptoms: At their worst the symptoms were moderate, in the emergency department the symptoms are unchanged. The patient has not experienced similar symptoms in the past. The patient has not recently seen a physician. 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 - Social history:: Smoking status: Patient denies any tobacco usage or history of. ROS: 17:06 Constitutional: Negative for fever, chills, and weight loss, Cardiovascular: Negative kb for chest pain, palpitations, and edema, Respiratory: Negative for shortness of breath, cough, wheezing, and pleuritic chest pain, Abdomen/GI: Negative for abdominal pain, nausea, vomiting, diarrhea, and constipation, Back: Negative for injury and pain, Skin: Negative for injury, rash, and discoloration, Neuro: Negative for headache, weakness, numbness, tingling, and seizure. 17:06 MS/extremity: Positive for pain, of the right foot. Exam: 17:08 Constitutional: This is a well developed, well nourished patient who is awake, alert, kb and in no acute distress. Head/Face: Normocephalic, atraumatic. Chest/axilla: Normal chest wall appearance and motion. Nontender with no deformity. No lesions are appreciated. Cardiovascular: Regular rate and rhythm with a normal S1 and S2. No gallops, murmurs, or rubs. Normal PMI, no JVD. No pulse deficits. Respiratory: Lungs have equal breath sounds bilaterally, clear to auscultation and percussion. No rales, rhonchi or wheezes noted. No increased work of breathing, no retractions or nasal flaring. Abdomen/GI: Soft, non-tender, with normal bowel sounds. No distension or tympany. No guarding or rebound. No evidence of tenderness throughout. Skin: Warm, dry with normal turgor. Normal color with no rashes, no lesions, and no evidence of cellulitis. Neuro: Awake and alert, GCS 15, oriented to person, place, time, and situation. Cranial nerves II-XII grossly intact. Motor strength 5/5 in all extremities. Sensory grossly intact. Cerebellar exam normal. Normal gait. 17:08 Musculoskeletal/extremity: Extremities: grossly normal except: noted in the heel of right foot: pain, tenderness, ROM: intact in all extremities, Circulation is intact in all extremities. Sensation intact. Weight bearing: able to fully bear weight. Vital Signs: 14:48 BP 111 / 56; Pulse 81; Resp 17; Temp 98.1; Pulse Ox 100% ; Weight 81.65 kg; Height 5 ll1 ft. 0 in. (152.40 cm); Pain 6/10; 16:40 BP 108 / 87; Pulse 86; Resp 15 S; Pulse Ox 100% on R/A; ca1 14:48 Body Mass Index 35.15 (81.65 kg, 152.40 cm) ll1 MDM: 15:39 Patient medically screened. kb 17:02 Data reviewed: vital signs, nurses notes. Data interpreted: Pulse oximetry: on room air kb is 100 %. Interpretation: normal. Counseling: I had a detailed discussion with the patient and/or guardian regarding: the historical points, exam findings, and any diagnostic results supporting the discharge/admit diagnosis, radiology results, the need for outpatient follow up, a family practitioner, a speeder hand, to return to the emergency department if symptoms worsen or persist or if there are any questions or concerns that arise at home. 08/19 15:11 Order name: Foot Right 3 View XRAY; Complete Time: 16:32 kb Administered Medications: No medications were administered Disposition: 18:00 Co-signature as Attending Physician, Miguel Chun MD. rn Disposition: 08/19/20 16:37 Discharged to Home. Impression: Pain in right foot. - Condition is Stable. - Discharge Instructions: Musculoskeletal Pain, Plantar Fasciitis. - Prescriptions for Ibuprofen 800 mg Oral Tablet - take 1 tablet by ORAL route every 8 hours As needed take with food; 30 tablet. - Medication Reconciliation Form, Thank You Letter, Antibiotic Education, Prescription Opioid Use form. - Follow up: Emergency Department; When: As needed; Reason: Worsening of condition. Follow up: Private Physician; When: 2 - 3 days; Reason: Recheck today's complaints, Continuance of care, Re-evaluation by your physician. Signatures: Dispatcher [employer] EDMS Jessy Montes, DAVIE-C STUDIO MODEL-Miguel Roman MD MD rn Elinor, Orquidea RN RN ca1 Mariann De Leon RN RN ll1 Corrections: (The following items were deleted from the chart) 17:15 16:37 08/19/2020 16:37 Discharged to Home. Impression: Pain in right foot. Condition is ca1 Stable. Forms are Medication Reconciliation Form, Thank You Letter, Antibiotic Education, Prescription Opioid Use. Follow up: Emergency Department; When: As needed; Reason: Worsening of condition. Follow up: Private Physician; When: 2 - 3 days; Reason: Recheck today's complaints, Continuance of care, Re-evaluation by your physician. kb
[2020-08-19 18:34] VITALS: TEMP 98.1; O2SAT 100
[2020-08-19 18:36] VITALS: BP 108/87
== END 2020-08-19 17:15 | disposition home or self-care (01) ==
LOC: ER 14:26
DX: M79.671 Pain in right foot (principal)
CPT/HCPCS: 99283

== ENCOUNTER 2020-12-25 12:08 | Emergency (ER) | payer SELFPAY ==
--- NOTE | 2020-12-25 13:41 | RAD REPORT ---
EXAM DESCRIPTION: Yeny Single View12/25/2020 1:26 pm CLINICAL HISTORY: Cough COMPARISON: none FINDINGS: The lungs appear clear of acute infiltrate. The heart is normal size IMPRESSION: No acute abnormalities displayed
[2020-12-25 15:04] LABS: SARS-COV-2 RT PCR POSITIVE (NEGATIVE)
--- NOTE | 2020-12-25 15:05 | EDPHYS ---
Physician Documentation [facility] Name: Peyton Potts Age: 30 yrs Sex: Female : 1990 Arrival Date: 12/25/2020 Time: 12:14 Bed 23 Private MD: ED Physician Dorian Schmidt HPI: 12/25 16:21 This 30 yrs old Female presents to ER via Ambulatory with complaints of Chest kb Pain, Cough, Sore Throat. 16:21 The patient or guardian reports cough, that is intermittent, described as moderate, kb with no sputum, flu symptoms, low-grade fever, myalgias. Onset: The symptoms/episode began/occurred yesterday. Severity of symptoms: At their worst the symptoms were moderate, in the emergency department the symptoms are unchanged. Modifying factors: The symptoms are alleviated by nothing, the symptoms are aggravated by nothing. Associated signs and symptoms: Pertinent positives: chest pain, with cough, fever, rhinorrhea, sore throat. The patient has not experienced similar symptoms in the past. The patient has not recently seen a physician. Pt reports cough, congestion, fever, chills, chest pain with cough, bodyaches, malaise and fatigue since yesterday. 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 - Social history:: Smoking status: Patient denies any tobacco usage or history of. ROS: 16:20 Abdomen/GI: Negative for abdominal pain, nausea, vomiting, diarrhea, and constipation, kb Back: Negative for injury and pain, MS/Extremity: Negative for injury and deformity, Skin: Negative for injury, rash, and discoloration, Neuro: Negative for headache, weakness, numbness, tingling, and seizure. 16:20 Constitutional: Positive for body aches, chills, fatigue, fever, malaise. 16:20 Cardiovascular: Positive for chest pain, with cough. 16:20 Respiratory: Positive for cough, with no reported sputum. Exam: 16:20 Constitutional: This is a well developed, well nourished patient who is awake, alert, kb and in no acute distress. Head/Face: Normocephalic, atraumatic. Chest/axilla: Normal chest wall appearance and motion. Nontender with no deformity. No lesions are appreciated. Cardiovascular: Regular rate and rhythm with a normal S1 and S2. No gallops, murmurs, or rubs. Normal PMI, no JVD. No pulse deficits. Respiratory: Lungs have equal breath sounds bilaterally, clear to auscultation and percussion. No rales, rhonchi or wheezes noted. No increased work of breathing, no retractions or nasal flaring. Abdomen/GI: Soft, non-tender, with normal bowel sounds. No distension or tympany. No guarding or rebound. No evidence of tenderness throughout. Skin: Warm, dry with normal turgor. Normal color with no rashes, no lesions, and no evidence of cellulitis. MS/ Extremity: Pulses equal, no cyanosis. Neurovascular intact. Full, normal range of motion. Neuro: Awake and alert, GCS 15, oriented to person, place, time, and situation. Cranial nerves II-XII grossly intact. Motor strength 5/5 in all extremities. Sensory grossly intact. Cerebellar exam normal. Normal gait. Vital Signs: 12:19 BP 111 / 64; Pulse 105; Resp 20; Temp 99.9(O); Pulse Ox 100% on R/A; Weight 81.65 kg; sv Height 5 ft. 0 in. (152.40 cm); 12:19 Body Mass Index 35.15 (81.65 kg, 152.40 cm) sv MDM: 13:29 Patient medically screened. kb 16:21 Data reviewed: vital signs, nurses notes. Data interpreted: Pulse oximetry: on room air kb is 100 %. Interpretation: normal. Counseling: I had a detailed discussion with the patient and/or guardian regarding: the historical points, exam findings, and any diagnostic results supporting the discharge/admit diagnosis, lab results, radiology results, the need for outpatient follow up, a family practitioner, to return to the emergency department if symptoms worsen or persist or if there are any questions or concerns that arise at home. 12/25 12:26 Order name: Chest Single View XRAY; Complete Time: 13:52 kb 12/25 15:05 Order name: COVID-19/FLU A+B; Complete Time: 15:06 EDMS Administered Medications: No medications were administered Disposition: 17:33 Co-signature as Attending Physician, Dorian Schmidt MD I agree with the assessment and kdr plan of care. Disposition: 12/25/20 15:04 Discharged to Home. Impression: Coronavirus infection, unspecified. - Condition is Stable. - Discharge Instructions: Viral Respiratory Infection, [id number], COVID-19. - Medication Reconciliation Form, Thank You Letter, Antibiotic Education, Prescription Opioid Use form. - Follow up: Emergency Department; When: As needed; Reason: Worsening of condition. Follow up: Private Physician; When: 2 - 3 days; Reason: Recheck today's complaints, Continuance of care, Re-evaluation by your physician. Signatures: Dispatcher [employer] EDCA Jessy Montes, DAVIE-Alexei NET WPF DEVELOPER-Zohra Hassan, RN RN sv Dorian Schmidt MD MD kdr Jody James RN RN iw Corrections: (The following items were deleted from the chart) 13:48 12:26 Influenza Screen (A \T\ B)+BA.LAB.BRZ ordered. [facility] EDCA 13:48 12:26 CORONAVIRUS+MR.LAB.BRZ ordered. [facility] EDCA 15:13 15:04 12/25/2020 15:04 Discharged to Home. Impression: Coronavirus infection, iw unspecified. Condition is Stable. Forms are Medication Reconciliation Form, Thank You Letter, Antibiotic Education, Prescription Opioid Use. Follow up: Emergency Department; When: As needed; Reason: Worsening of condition. Follow up: Private Physician; When: 2 - 3 days; Reason: Recheck today's complaints, Continuance of care, Re-evaluation by your physician. kb
--- NOTE | 2020-12-25 15:05 | ER ---
Nurse's Notes [facility] Name: Peyton Potts Age: 30 yrs Sex: Female : 1990 Arrival Date: 12/25/2020 Time: 12:14 Bed 23 Private MD: Diagnosis: Coronavirus infection, unspecified Presentation: 12/25 12:19 Chief complaint: Patient states: cough, chest pain with cough, chills started in the sv middle of the night. Coronavirus screen: Client denies travel out of the [place] in the last 14 days. At this time, the client does not indicate any symptoms associated with coronavirus-19. Ebola Screen: No symptoms or risks identified at this time. Risk Assessment: Do you want to hurt yourself or someone else? Patient reports no desire to harm self or others. Onset of symptoms was December 25, 2020. 12:19 Method Of Arrival: Ambulatory sv 12:19 Acuity: RICHIE 3 sv 12:19 Initial Sepsis Screen: Does the patient meet any 2 criteria? HR > 90 bpm. No. Patient's sv initial sepsis screen is negative. Does the patient have a suspected source of infection? No. Patient's initial sepsis screen is negative. Triage Assessment: 12:21 General: Appears in no apparent distress. comfortable, Behavior is calm, cooperative, sv appropriate for age. Neuro: Level of Consciousness is awake, alert, obeys commands, Oriented to person, place, time, situation, Gait is steady. Respiratory: Respiratory effort is even, unlabored. 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 - Social history:: Smoking status: Patient denies any tobacco usage or history of. Screenin:24 Abuse screen: Denies threats or abuse. Denies injuries from another. Nutritional iw screening: No deficits noted. Tuberculosis screening: No symptoms or risk factors identified. Fall Risk None identified. Assessment: 13:40 General: Appears in no apparent distress. Behavior is calm, cooperative. Pain: iw Complains of pain in head and chest Pain does not radiate. Pain began. Neuro: Level of Consciousness is awake, alert, obeys commands, Oriented to person, place, time, situation, Moves all extremities. Full function. Cardiovascular: Patient's skin is warm and dry. Respiratory: Respiratory effort is even, unlabored, Respiratory pattern is regular, symmetrical. Derm: Skin is intact, is healthy with good turgor. Musculoskeletal: Range of motion: intact in all extremities. 14:24 Reassessment: Patient appears in no apparent distress at this time. Patient and/or iw family updated on plan of care and expected duration. Pain level reassessed. Patient is alert, oriented x 3, equal unlabored respirations, skin warm/dry/pink. 10 more minutes for COVID result. Vital Signs: 12:19 BP 111 / 64; Pulse 105; Resp 20; Temp 99.9(O); Pulse Ox 100% on R/A; Weight 81.65 kg; sv Height 5 ft. 0 in. (152.40 cm); 12:19 Body Mass Index 35.15 (81.65 kg, 152.40 cm) sv ED Course: 12:14 Patient arrived in ED. ag5 12:19 Triage completed. sv 12:19 Arm band placed on. sv 12:25 Jessy Montes FNP-C is PHCP. kb 12:25 Dorian Schmidt MD is Attending Physician. kb 13:00 Patient has correct armband on for positive identification. Pulse ox on. iw 13:24 Jody James, RN is Primary Nurse. iw 13:26 Chest Single View XRAY In Process Unspecified. EDMS 15:12 No provider procedures requiring assistance completed. Patient did not have IV access iw during this emergency room visit. Patient maintains SpO2 saturation greater than 95% on room air. Administered Medications: No medications were administered Outcome: 15:04 Discharge ordered by MD. kb 15:12 Discharged to home ambulatory. iw 15:12 Condition: good 15:12 Discharge instructions given to patient, Instructed on discharge instructions, follow up and referral plans. Demonstrated understanding of instructions, follow-up care. 15:13 Patient left the ED. iw Signatures: Dispatcher [employer] EDMS Jessy Montes FNP-C FNP-Ckb Verde, Stephanie, RN RN Jody James, YUE RN Raj Arias ag5 Corrections: (The following items were deleted from the chart) 12:22 12:19 Pulse 105bpm; Resp 20bpm; Pulse Ox 100% RA; Temp 99.9F Oral; 81.65 kg; Height 5 sv ft. 0 in.; BMI: 35.1; sv 14:25 14:24 Reassessment: Patient appears in no apparent distress at this time. Patient iw and/or family updated on plan of care and expected duration. Pain level reassessed. Patient is alert, oriented x 3, equal unlabored respirations, skin warm/dry/pink. iw
[2020-12-25 15:22] VITALS: BP 111/64; TEMP 99.9; O2SAT 100
== END 2020-12-25 15:13 | disposition home or self-care (01) ==
LOC: ER 12:08
DX: U07.1 COVID-19 (principal)
CPT/HCPCS: 0240U; 71045; 99284

== ENCOUNTER 2022-08-29 18:33 | Emergency (ER) | payer SELFPAY ==
[2022-08-29] MEDS ORDERED: ONDANSETRON 4 MG/2 ML VIAL ONE ×2 (19:41→22:22)
[2022-08-29] MEDS ORDERED: NA CHLORIDE 0.9% 1,000 ML ONE (19:41)
[2022-08-29 19:44] LABS: Urine Blood 1+ (Negative); Urine Glucose Negative (Negative); Urine Protein Negative (Negative); Urine Specific Gravity >=1.030 (1.005-1.030); Urine pH 5.5 (5.0-7.0)
[2022-08-29 19:53] LABS: Hematocrit 43.3 % (36.0-45.0); Lymphocytes % 17.2 % (15.3-44.8); MCV 88.8 fL (80-100); MPV 7.4 fL (7.6-11.3); RBC Red Blood Cell Count 4.88 M/uL (3.86-4.86)
[2022-08-29 20:00] LABS: Urine Bacteria 20-50 /HPF (<20); Urine Mucus 4+ /HPF (None Seen)
[2022-08-29 20:16] LABS: Albumin 4.1 g/dL (3.4-5.0); Bilirubin Total 0.3 mg/dL (0.2-1.0); Potassium 3.6 mmol/L (3.5-5.1); Protein, Total 8.1 g/dL (6.4-8.2)
--- NOTE | 2022-08-29 21:17 | RAD REPORT ---
EXAM DESCRIPTION: CT - Abdomen Pelvis W Contrast - 08/29/2022 9:01 pm CLINICAL HISTORY: Abdominal pain COMPARISON: 2014 TECHNIQUE: Computed axial tomography of the abdomen pelvis was obtained. 100 cc Isovue-300 was admin istered intravenously. Oral contrast was not requested which limits evaluation of bowel and appendix All CT scans are performed using dose optimization technique as appropriate and may include automated exposure control or mA/KV adjustment according to patient size. FINDINGS: The liver, spleen, pancreas, adrenal and kidneys appear unremarkable. There is no evidence of diverticulitis. Normal appendix. No adnexal mass 4.2 centimeter right vaginal cyst Small umbilical hernia IMPRESSION: No acute abnormality is displayed. 4.2 centimeter right vaginal cyst
--- NOTE | 2022-08-29 22:18 | EDPHYS ---
Physician Documentation [facility] Name: Peyton Potts Age: 32 yrs Sex: Female : 1990 Arrival Date: 08/29/2022 Time: 18:37 Bed 25 Private MD: ED Physician Dorian Schmidt HPI: 08/29 19:32 This 32 yrs old Female presents to ER via Ambulatory with complaints of Headache, Runny kb Nose, Vomiting/Diarrhea. 19:32 The patient presents to the emergency department with nausea, vomiting, diarrhea, kb abdominal pain. Onset: The symptoms/episode began/occurred this morning. Possible causes: unknown. The symptoms are aggravated by nothing. The symptoms are alleviated by nothing. Associated signs and symptoms: Pertinent positives: abdominal pain, diarrhea, nausea, vomiting. Severity of symptoms: At their worst the symptoms were moderate in the emergency department the symptoms are unchanged. The patient has not experienced similar symptoms in the past. The patient has not recently seen a physician. Pt reports headache, n/v/d, abd pain and runny nose that started this morning. Denies fever. 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 - Social history:: Smoking status: Patient denies any tobacco usage or history of. ROS: 19:31 Constitutional: Negative for fever, chills, and weight loss. kb 19:31 ENT: Positive for rhinorrhea. 19:31 Abdomen/GI: Positive for abdominal pain, nausea, vomiting, and diarrhea. 19:31 Neuro: Positive for headache. 19:31 All other systems are negative. Exam: 19:31 Constitutional: This is a well developed, well nourished patient who is awake, alert, kb and in no acute distress. Head/Face: Normocephalic, atraumatic. ENT: Moist Mucous membranes Cardiovascular: Regular rate and rhythm with a normal S1 and S2. No gallops, murmurs, or rubs. No pulse deficits. Respiratory: Respirations even and unlabored. No increased work of breathing. Talking in full sentences Skin: Warm, dry with normal turgor. Normal color. MS/ Extremity: Pulses equal, no cyanosis. Neurovascular intact. Full, normal range of motion. Neuro: Awake and alert, GCS 15, oriented to person, place, time, and situation. Moves all extremities. Normal gait. Psych: Awake, alert, with orientation to person, place and time. Behavior, mood, and affect are within normal limits. 19:31 Abdomen/GI: Inspection: abdomen appears normal, Bowel sounds: normal, in all quadrants, Palpation: soft, in all quadrants, mild abdominal tenderness, in the right lower quadrant. Vital Signs: 18:43 BP 127 / 80; Pulse 94; Resp 16; Temp 98.9(TE); Pulse Ox 100% on R/A; Weight 77.11 kg; hb Height 5 ft. 1 in. (154.94 cm); Pain 7/10; 21:57 BP 123 / 81; Pulse 66; Resp 18; Pulse Ox 100% on R/A; tw5 22:25 BP 125 / 75; Pulse 71; Resp 18; Pulse Ox 100% on R/A; tw5 22:39 BP 110 / 71; Pulse 60; Resp 18; Pulse Ox 100% on R/A; tw5 18:43 Body Mass Index 32.12 (77.11 kg, 154.94 cm) hb Everton Coma Score: 19:31 Eye Response: spontaneous(4). Verbal Response: oriented(5). Motor Response: obeys kb commands(6). Total: 15. MDM: 18:45 Patient medically screened. kb 19:31 Data reviewed: vital signs, nurses notes. Data interpreted: Pulse oximetry: on room air kb is 100 %. Interpretation: normal. 22:17 Counseling: I had a detailed discussion with the patient and/or guardian regarding: the kb historical points, exam findings, and any diagnostic results supporting the discharge/admit diagnosis, lab results, radiology results, the need for outpatient follow up, a family practitioner, to return to the emergency department if symptoms worsen or persist or if there are any questions or concerns that arise at home. 08/29 18:52 Order name: CBC with Diff; Complete Time: 20:02 kb 08/29 18:52 Order name: CMP; Complete Time: 20:21 kb 08/29 18:52 Order name: Lipase; Complete Time: 20:21 kb 08/29 18:52 Order name: Urine Microscopic Only; Complete Time: 20:02 kb 08/29 19:00 Order name: Flu; Complete Time: 19:46 kb 08/29 19:00 Order name: COVID-19 SARS RT PCR (Document "Date of Onset" if Symptomatic); Complete kb Time: 19:42 08/29 18:52 Order name: CT Abd/Pelvis - IV Contrast Only; Complete Time: 21:17 kb 08/29 18:52 Order name: IV Saline Lock; Complete Time: 19:45 kb 08/29 19:45 Order name: Urine Dipstick-Ancillary; Complete Time: 19:46 EDMS 08/29 20:03 Order name: Urine Culture EDMS 08/29 18:52 Order name: Labs collected and sent; Complete Time: 19:45 kb 08/29 18:52 Order name: Urine Dipstick-Ancillary (obtain specimen); Complete Time: 19:45 kb 08/29 18:52 Order name: Urine Test (obtain specimen); Complete Time: 19:45 kb 08/29 21:18 Order name: PO challenge; Complete Time: 21:56 kb Administered Medications: 19:46 Drug: NS 0.9% 1000 ml Route: IV; Rate: 1 bolus; Site: right antecubital; hb 22:40 Follow up: Response: No adverse reaction; IV Status: Completed infusion; IV Intake: tw5 1000ml 19:46 Drug: Zofran (Ondansetron) 4 mg Route: IVP; Site: right antecubital; hb 22:39 Follow up: Response: No adverse reaction tw5 22:25 Drug: Zofran (Ondansetron) 4 mg Route: IVP; Site: right antecubital; tw5 22:39 Follow up: Response: No adverse reaction; Pain is decreased tw5 22:25 Drug: Ketorolac 15 mg Route: IVP; Site: right antecubital; tw5 22:39 Follow up: Response: No adverse reaction; Pain is decreased tw5 Disposition Summary: 08/29/22 22:17 Discharge Ordered Location: Home kb Condition: Stable kb Diagnosis - UTI/ Urinary tract infection, site not specified kb - Vomiting kb - Diarrhea, unspecified kb Followup: kb - With: Emergency Department - When: As needed - Reason: Worsening of condition Followup: kb - With: Private Physician - When: 2 - 3 days - Reason: Recheck today's complaints, Continuance of care, Re-evaluation by your physician Discharge Instructions: - Discharge Summary Sheet kb - Viral Gastroenteritis, Adult, [id number] kb - Urinary Tract Infection, Adult, [id number] kb Forms: - Medication Reconciliation Form kb - Thank You Letter kb - Antibiotic Education kb - Prescription Opioid Use kb Prescriptions: - ondansetron 4 mg Oral tablet,disintegrating - take 1 tablet by ORAL route every 6 hours As needed; 12 tablet; Refills: 0, kb Product Selection Permitted Signatures: Dispatcher [employer] EDMS Jessy Montes, HACKLER DOLL WIGS-C HACKLER DOLL WIGS-Nancy Roger, RN RN Jossy Rodriguez tw5
--- NOTE | 2022-08-29 22:18 | ER ---
Nurse's Notes [facility] Name: Peyton Potts Age: 32 yrs Sex: Female : 1990 Arrival Date: 08/29/2022 Time: 18:37 Bed 25 Private MD: Diagnosis: UTI/ Urinary tract infection, site not specified;Vomiting;Diarrhea, unspecified Presentation: 08/29 18:43 Chief complaint: RLQ pain, headache, and N/V/D since this morning. Not tolerating hb fluids. Coronavirus screen: Client presents with at least one sign or symptom that may indicate coronavirus-19. Standard/surgical mask placed on the client. Provider contacted for isolation considerations. Ebola Screen: No symptoms or risks identified at this time. Initial Sepsis Screen: Does the patient meet any 2 criteria? No. Patient's initial sepsis screen is negative. Does the patient have a suspected source of infection? No. Patient's initial sepsis screen is negative. Risk Assessment: Do you want to hurt yourself or someone else? Patient reports no desire to harm self or others. Onset of symptoms was August 29, 2022. 18:43 Method Of Arrival: Ambulatory hb 18:43 Acuity: RICHIE 3 hb Triage Assessment: 21:58 Headache History: The patient has had previous headaches and this one is similar to tw5 previous episodes. General: Appears in no apparent distress. Behavior is calm, cooperative, appropriate for age. 22:40 Pain: Pain began gradually, Also complains of no other associated symptoms. 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 - Social history:: Smoking status: Patient denies any tobacco usage or history of. Screenin:46 Abuse screen: Denies threats or abuse. Denies injuries from another. Nutritional hb screening: No deficits noted. Tuberculosis screening: No symptoms or risk factors identified. Fall Risk None identified. Assessment: 21:57 Pain: Complains of pain in "My head just hurts. I have that killer headache." Pain tw5 currently is 8 out of 10 on a pain scale. Neuro: No deficits noted. Level of Consciousness is awake, alert, obeys commands, Oriented to person, place, time, situation. Respiratory: No deficits noted. GI: Reports nausea. 22:25 General: Appears in no apparent distress. Behavior is calm, cooperative, appropriate tw5 for age. 22:39 Reassessment: Patient states feeling better. Patient states symptoms have improved. tw5 Vital Signs: 18:43 BP 127 / 80; Pulse 94; Resp 16; Temp 98.9(TE); Pulse Ox 100% on R/A; Weight 77.11 kg; hb Height 5 ft. 1 in. (154.94 cm); Pain 7/10; 21:57 BP 123 / 81; Pulse 66; Resp 18; Pulse Ox 100% on R/A; tw5 22:25 BP 125 / 75; Pulse 71; Resp 18; Pulse Ox 100% on R/A; tw5 22:39 BP 110 / 71; Pulse 60; Resp 18; Pulse Ox 100% on R/A; tw5 18:43 Body Mass Index 32.12 (77.11 kg, 154.94 cm) hb Dorian Coma Score: 19:31 Eye Response: spontaneous(4). Verbal Response: oriented(5). Motor Response: obeys kb commands(6). Total: 15. ED Course: 18:37 Patient arrived in ED. am2 18:40 Jess[facility]es [facility]-C [facility]. mb9 18:44 Triage completed. hb 18:44 Arm band placed on. hb 18:45 Dorian Schmidt MD is Attending Physician. kb 19:45 CBC with Diff Sent. mm9 19:45 CMP Sent. mm9 19:45 Lipase Sent. mm9 19:45 Urine Microscopic Only Sent. mm9 19:46 Initial lab(s) drawn, by ca, sent to lab. Urine collected: clean catch specimen, mm9 cloudy. Inserted saline lock: 20 gauge in right antecubital area, using aseptic technique. Blood collected. 19:47 Patient has correct armband on for positive identification. Bed in low position. Call mm9 light in reach. 20:22 Jossy Cueva is Primary Nurse. tw5 21:02 CT Abd/Pelvis - IV Contrast Only In Process Unspecified. EDMS 21:56 Urine Culture Sent. bb 21:57 Pulse ox on. NIBP on. Door closed. Noise minimized. Moved to private room. tw5 22:40 No provider procedures requiring assistance completed. IV discontinued, intact, tw5 bleeding controlled, No redness/swelling at site. Pressure dressing applied. Administered Medications: 19:46 Drug: NS 0.9% 1000 ml Route: IV; Rate: 1 bolus; Site: right antecubital; hb 22:40 Follow up: Response: No adverse reaction; IV Status: Completed infusion; IV Intake: tw5 1000ml 19:46 Drug: Zofran (Ondansetron) 4 mg Route: IVP; Site: right antecubital; hb 22:39 Follow up: Response: No adverse reaction tw5 22:25 Drug: Zofran (Ondansetron) 4 mg Route: IVP; Site: right antecubital; tw5 22:39 Follow up: Response: No adverse reaction; Pain is decreased tw5 22:25 Drug: Ketorolac 15 mg Route: IVP; Site: right antecubital; tw5 22:39 Follow up: Response: No adverse reaction; Pain is decreased tw5 Medication: 21:57 VIS not applicable for this client. tw5 Intake: 22:40 IV: 1000ml; Total: 1000ml. tw5 Outcome: 22:17 Discharge ordered by . kb 22:40 Discharged to home ambulatory. tw5 22:40 Condition: improved 22:40 Discharge instructions given to patient, Instructed on discharge instructions, follow up and referral plans. Demonstrated understanding of instructions, follow-up care, medications, Prescriptions given X 1. 22:40 Patient left the ED. tw5 Signatures: Dispatcher [employer] EDRI Jessy Montes, RODRI BRODERICK-Dolores Schwab RN RN Nancy Meredith, YUE RN Rosalind Tejada Tiffany tw5 Pratibha Felix Mary RN RN mb9
[2022-08-29] MEDS ORDERED: KETOROLAC 30 MG/ML INJ ONE (22:22)
[2022-08-29 22:56] VITALS: TEMP 98.9; O2SAT 100
[2022-08-29 22:59] VITALS: BP 110/71
== END 2022-08-29 22:40 | disposition home or self-care (01) ==
LOC: ER 18:33
DX: N39.0 Urinary tract infection, site not specified (principal); R19.7 Diarrhea, unspecified; Z20.822 Contact with and (suspected) exposure to COVID-19
CPT/HCPCS: 36415; 74177; 80053; 81003; 81015; 83690; 85025; 87086; 87088; 87804; 96361; 96374; 96375; 99284; J2405; J7030; Q9967; U0003

== ENCOUNTER 2022-09-14 12:46 | Emergency (ER) | payer SELFPAY ==
--- NOTE | 2022-09-14 13:55 | RAD REPORT ---
EXAM DESCRIPTION: RAD - Chest Single View - 09/14/2022 1:35 pm CLINICAL HISTORY: Congestion COMPARISON: Portable 12/25/2020 TECHNIQUE: AP portable chest image was obtained 09/14/2022 1:35 pm . FINDINGS: Lungs are clear. Heart and vasculature are normal. No measurable pleural effusion and no p neumothorax. No acute bony abnormality seen. No acute aortic findings suspected. IMPRESSION: No acute cardiopulmonary process. No significant change from comparison study.
--- NOTE | 2022-09-14 14:09 | EDPHYS ---
Physician Documentation [facility] Name: Peyton Potts Age: 32 yrs Sex: Female : 1990 Arrival Date: 09/14/2022 Time: 12:48 Bed 13 Private MD: ED Physician Dorian Schmidt HPI: 09/14 12:54 This 32 yrs old Female presents to ER via Unassigned with complaints of Chest Pain. kb 12:54 The patient or guardian reports cough, that is intermittent, described as mild, flu kb symptoms, low-grade fever. Onset: The symptoms/episode began/occurred 3 day(s) ago. Severity of symptoms: At their worst the symptoms were moderate, in the emergency department the symptoms are unchanged. Modifying factors: The symptoms are alleviated by nothing, the symptoms are aggravated by nothing. Associated signs and symptoms: Pertinent positives: chest pain, with cough, with breathing, fever, rhinorrhea, sore throat. The patient has not experienced similar symptoms in the past. The patient has not recently seen a physician. Pt reports sore throat, cough, congestion, chest pain with cough and deep breath, and fever for 3 days. 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 - Social history:: Smoking status: Patient denies any tobacco usage or history of. ROS: 12:54 Abdomen/GI: Negative for abdominal pain, nausea, vomiting, diarrhea, and constipation. kb 12:54 Constitutional: Positive for fever, malaise. 12:54 ENT: Positive for rhinorrhea, sinus congestion, sore throat. 12:54 Cardiovascular: Positive for chest pain, with cough. 12:54 Respiratory: Positive for cough, Negative for dyspnea on exertion, hemoptysis, orthopnea, pleurisy, shortness of breath, sputum production, wheezing. 12:54 All other systems are negative. Exam: 12:54 Constitutional: This is a well developed, well nourished patient who is awake, alert, kb and in no acute distress. Head/Face: Normocephalic, atraumatic. ENT: Moist Mucous membranes Cardiovascular: Regular rate and rhythm with a normal S1 and S2. No gallops, murmurs, or rubs. No pulse deficits. Respiratory: Respirations even and unlabored. No increased work of breathing. Talking in full sentences Abdomen/GI: Soft, non-tender. No distention Skin: Warm, dry with normal turgor. Normal color. MS/ Extremity: Pulses equal, no cyanosis. Neurovascular intact. Full, normal range of motion. Neuro: Awake and alert, GCS 15, oriented to person, place, time, and situation. Moves all extremities. Normal gait. Psych: Awake, alert, with orientation to person, place and time. Behavior, mood, and affect are within normal limits. Vital Signs: 12:50 BP 118 / 79; Pulse 85; Resp 18; Temp 98.8(O); Pulse Ox 97% on R/A; Weight 77.11 kg; ko1 Height 5 ft. 0 in. (152.40 cm); Pain 0/10; 12:50 Body Mass Index 33.20 (77.11 kg, 152.40 cm) ko1 MDM: 12:53 Patient medically screened. kb 12:54 Data reviewed: vital signs, nurses notes. Data interpreted: Pulse oximetry: on room air kb is 100 %. Interpretation: normal. 14:08 Counseling: I had a detailed discussion with the patient and/or guardian regarding: the kb historical points, exam findings, and any diagnostic results supporting the discharge/admit diagnosis, lab results, radiology results, the need for outpatient follow up, a family practitioner, to return to the emergency department if symptoms worsen or persist or if there are any questions or concerns that arise at home. 09/14 12:53 Order name: Flu; Complete Time: 13:45 kb 09/14 12:53 Order name: COVID-19 SARS RT PCR (Document "Date of Onset" if Symptomatic); Complete kb Time: 14:08 09/14 12:53 Order name: Chest Single View XRAY; Complete Time: 14:08 kb Administered Medications: No medications were administered Disposition: 15:44 Co-signature as Attending Physician, Dorian Schmidt MD I agree with the assessment and kdr plan of care. Disposition Summary: 09/14/22 14:09 Discharge Ordered Location: Home kb Condition: Stable kb Diagnosis - Acute upper respiratory infection, unspecified kb Followup: kb - With: Emergency Department - When: As needed - Reason: Worsening of condition Followup: kb - With: Private Physician - When: 2 - 3 days - Reason: Recheck today's complaints, Continuance of care, Re-evaluation by your physician Discharge Instructions: - Discharge Summary Sheet kb - Upper Respiratory Infection, Adult, [id number] kb - Viral Respiratory Infection, [id number] kb Forms: - Medication Reconciliation Form kb - Thank You Letter kb - Antibiotic Education kb - Prescription Opioid Use kb Signatures: Dispatcher [employer] EDMS Jessy Montes, DEPARTMENT EDITOR-C DEPARTMENT EDITOR-Dorian Miller MD MD kdr Oliver, Kathy RN RN ko1
--- NOTE | 2022-09-14 14:09 | ER ---
Nurse's Notes [facility] Name: Peyton Potts Age: 32 yrs Sex: Female : 1990 Arrival Date: 09/14/2022 Time: 12:48 Bed 13 Private MD: Diagnosis: Acute upper respiratory infection, unspecified Presentation: 09/14 12:50 Chief complaint: Patient states: cough, congestion, fever, chest pain with cough, sore ko1 throat. Coronavirus screen: At this time, the client does not indicate any symptoms associated with coronavirus-19. Ebola Screen: No symptoms or risks identified at this time. Initial Sepsis Screen: Does the patient meet any 2 criteria? No. Patient's initial sepsis screen is negative. Does the patient have a suspected source of infection? No. Patient's initial sepsis screen is negative. Risk Assessment: Do you want to hurt yourself or someone else? Patient reports no desire to harm self or others. Onset of symptoms was September 13, 2022. 12:50 Method Of Arrival: Ambulatory ko1 12:50 Acuity: RICHIE 4 ko1 Triage Assessment: 13:07 General: Appears in no apparent distress. comfortable, Behavior is calm, cooperative, ko1 appropriate for age. Pain: Denies pain. Cardiovascular: Rhythm is regular. 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 - Social history:: Smoking status: Patient denies any tobacco usage or history of. Screenin:09 Abuse screen: Denies threats or abuse. Denies injuries from another. Nutritional ko1 screening: No deficits noted. Tuberculosis screening: No symptoms or risk factors identified. Fall Risk None identified. Assessment: 13:09 General:. Pain: Pain does not radiate. Pain began when coughing. Neuro: No deficits ko1 noted. Cardiovascular: No deficits noted. Respiratory: Reports cough that is non-productive, persistent. GI: No deficits noted. : No deficits noted. EENT: No deficits noted. Derm: No deficits noted. Musculoskeletal: No deficits noted. Vital Signs: 12:50 BP 118 / 79; Pulse 85; Resp 18; Temp 98.8(O); Pulse Ox 97% on R/A; Weight 77.11 kg; ko1 Height 5 ft. 0 in. (152.40 cm); Pain 0/10; 12:50 Body Mass Index 33.20 (77.11 kg, 152.40 cm) ko1 ED Course: 12:48 Patient arrived in ED. as 12:48 Jessy Montes FNP-C is PHCP. kb 12:48 Dorian Schmidt MD is Attending Physician. kb 12:53 Damaris Infante, YUE is Primary Nurse. ko1 13:03 Flu Sent. ko1 13:03 COVID-19 SARS RT PCR (Document "Date of Onset" if Symptomatic) Sent. ko1 13:07 Triage completed. ko1 13:07 Arm band placed on right wrist. Patient placed in an exam room, on a stretcher, on ko1 pulse oximetry. 13:09 No provider procedures requiring assistance completed. Patient maintains SpO2 ko1 saturation greater than 95% on room air. 13:09 Patient has correct armband on for positive identification. Placed in gown. Bed in low ko1 position. Call light in reach. Side rails up X 1. Client placed on continuous cardiac and pulse oximetry monitoring. NIBP monitoring applied. Door closed. Noise minimized. Lights dimmed. Warm blanket given. 13:37 Chest Single View XRAY In Process Unspecified. EDMS 14:28 Patient did not have IV access during this emergency room visit. ko1 Administered Medications: No medications were administered Medication: 13:09 VIS not applicable for this client. ko1 Outcome: 14:09 Discharge ordered by . kb 14:28 Discharged to home ambulatory. ko1 14:28 Condition: stable 14:28 Discharge instructions given to patient, Instructed on discharge instructions, follow up and referral plans. Demonstrated understanding of instructions, follow-up care. 14:29 Patient left the ED. ko1 Signatures: Dispatcher [employer] EDMS Jessy Montes FNP-C FNP-Deborah Baum as Damaris Infante, RN RN ko1
[2022-09-14 14:45] VITALS: BP 118/79; TEMP 98.8; O2SAT 97
== END 2022-09-14 14:29 | disposition home or self-care (01) ==
LOC: ER 12:46
DX: J06.9 Acute upper respiratory infection, unspecified (principal); Z20.822 Contact with and (suspected) exposure to COVID-19
CPT/HCPCS: 71045; 87804; 99284; U0003